=== PATIENT | male | born 1990 | race Two or more races ===

== ENCOUNTER 2017-04-05 12:23 | Emergency (ER) | payer SELFPAY ==
[~2017-04-05] VITALS: Ht 175.3 cm; Wt 111.1 kg
[2017-04-05 12:23] VITALS: BP 143/74
--- NOTE | 2017-04-05 13:32 | NUR ---
XRAY AT BS
[2017-04-05] MEDS ORDERED: IBUPROFEN 400 MG TABLET PO ONE (14:00)
[2017-04-05] MEDS ORDERED: IBUPROFEN 400 MG TABLET ONE (14:04)
== END 2017-04-05 14:19 | disposition home or self-care (01) ==
LOC: ER 12:26
DX: S16.1XXA Strain of muscle, fascia and tendon at neck level, initial encounter (principal); S86.912A Strain of unspecified muscle(s) and tendon(s) at lower leg level, left leg, initial encounter; S86.911A Strain of unspecified muscle(s) and tendon(s) at lower leg level, right leg, initial encounter; S20.219A Contusion of unspecified front wall of thorax, initial encounter; F10.10 Alcohol abuse, uncomplicated; V49.59XA Passenger injured in collision with other motor vehicles in traffic accident, initial encounter; Y93.89 Activity, other specified; Y92.89 Other specified places as the place of occurrence of the external cause; Y99.8 Other external cause status
CPT/HCPCS: 71045-TC; A4606; Z7610